=== PATIENT | female | born 1985 | race Caucasian/White ===

== ENCOUNTER 2021-08-08 18:11 | Emergency (ER) | payer MEDICAID, SELFPAY ==
[2021-08-08 19:16] VITALS: BP 131/88; PULSE 81; RESP 19; TEMP 37; O2SAT 98; BMI 34.2
--- NOTE | 2021-08-08 19:31 | HMH.EDUTC ---
[facility] [place] Disposition Clinical Impression: Otitis media Qualifiers: Otitis media type: unspecified Laterality: left Qualified Code(s): H66.92 - Otitis media, unspecified, left ear Disposition: Home, Self-Care Condition on Discharge: Good Instructions: Middle Ear Infection, Amoxicillin Additional Instructions: *Monitor Temp, Over the counter Motrin or Tylenol as directed/as needed Tylenol every 4 hours and Motrin every 6 hours (as long as your family doctor has told you that you can take it) for fever or pain. and straight to ER if unable to lower temp less than 101.0 after medication given *Warm salt water gargles may help to soothe the throat *Throat Lozenges *Warm fluids like tea with honey may help to soothe the throat *Sleep elevated *Humidifier/Vaporizer *Flonase 2 sprays in each nostril daily but be aware that it may take 2-3 days before you notice improvement Take antibiotics as prescribed Follow up IMMEDIATELY for new or worsening symptoms or no Noticeable improvement over the next 48-72 hours. 911 for difficulty breathing or swallowing Prescriptions: Amoxicillin [Amoxicillin 875MG Tab] 875 mg PO Q12H #20 tab Transmission Status: Pending to [facility] Brompheniramine/Pseudoephed/Dm [Bromfed Dm Cough Syrup] 5 - 10 ml PO Q46H PRN #150 ml PRN Reason: Cough Transmission Status: Pending to [facility] Fluticasone Propionate [Flonase 50mcg nasal spray 16gm] 1 spr NS DAILY #1 each Transmission Status: Pending to [facility] Referrals: Hunter Storey MD [Primary Care Provider] - As needed Time of Disposition: 19:37 Medical Decision Making - Kwabena Inquiry Pt receiving controlled substance: No Kwabena was queried for this patient: No Vital Signs: 08/08/21 19:16 Temperature 98.6 F Temperature Source Oral Pulse Rate [Left] 81 Respiratory Rate 19 Blood Pressure [Right Arm] 131/88 Blood Pressure Mean [Right Arm] 102 02 Sat by Pulse Oximetry 98 [facility] [place] HPI - General Stated complaint: bilateral ear ache Time Seen by Provider: 08/08/21 19:31 Mode of Arrival: Ambulatory Source of Information: Patient Limitations: No Limitations Description of Symptoms (Recalled from Triage Doc. by RN): pt c/o ear aches, sore throat and a cough x3 days. HEENT Symptoms (Recalled from RN notes): Yes Resp Symptoms (Recalled from RN notes): Yes Skin Symptoms (Recalled from RN notes): No MS Symptoms (Recalled from RN notes): No Functional Status (Recalled from RN notes): wnl - History of Present Illness Provider Complaint: Patient states that she has been having bilateral ear aches, cough and scratchy throat States that ears have been hurting for several days and feels like she has pressure in there States that this evening she was still having pain and cough so she came in to get checked out - Related Data Previous Rx's Medication Instructions Recorded Amoxicillin [Amoxicillin 875MG 875 mg PO Q12H #20 tab 08/08/21 Tab] Brompheniramine/Pseudoephed/Dm 5 - 10 ml PO Q46H PRN #150 ml 08/08/21 [Bromfed Dm Cough Syrup] Fluticasone Propionate [Flonase 1 spr NS DAILY #1 each 08/08/21 50mcg nasal spray 16gm] Allergies Allergy/AdvReac Type Severity Reaction Status Date / Time No Known Allergies Allergy Verified 07/22/21 14:27 - Worker's Comp Is this a Worker's Comp case?: No [facility] History - Hepatitis A Screen Drug use history?: No High risk sexual behaviors?: No History of sexually transmitted infection?: No Currently employed?: No Childcare worker?: No Do you have indoor plumbing?: Yes Do you have electricity?: Yes Attestation statement:: This patient has been screened for Hepatitis A risk factors. I have reviewed the patient's past medical history: Yes Other Surgeries: Yes: No Previous Surgery Amputation: No Fractures: No - Social History Smoking Status: Never smoker Alcohol Intake: never Substance Use Type: denies use Occupational Status: employed Fam
[2021-08-08 19:44] VITALS: BP 131/88; PULSE 81; RESP 19; TEMP 37
== END 2021-08-08 19:45 | disposition home or self-care (01) ==
PROVIDERS: Emergency Provider Nurse Practitioner; PCP Emergency Medicine
DX: H66.92 Otitis media, unspecified, left ear (principal)
CPT/HCPCS: 99202; G0463

== ENCOUNTER → 2021-12-09 16:36 | Outpatient (CLI) | payer MEDICAID, SELFPAY ==
--- NOTE | 2021-12-09 16:44 | XR_ITS ---
PROCEDURE INFORMATION: Exam: XR Left Foot Exam date and time: 12/09/2021 4:48 PM Age: 36 years old Clinical indication: Foot; Patient HX: Pain in left heel. Plantar fascitis vs heel spur is what her doctor told her. No known injury. ; Additional info: Left foot pain TECHNIQUE: Imaging protocol: XR Left foot. Views: 3 or more views. COMPARISON: No relevant prior studies available. FINDINGS: Bones/joints: Prominent enthesophyte from the plantar margin of the calcaneus at the site of the plantar aponeurosis. Persistent os trigonum. Soft tissues: Normal. IMPRESSION: 1. No evidence of acute osseous injury. 2. Prominent enthesophyte plantar margin of the calcaneus. 3. Recommendations: Follow-up with magnetic resonance imaging to evaluate for the presence of plantar fasciitis.
== END ==
PROVIDERS: PCP Emergency Medicine; Visit Provider Emergency Medicine
DX: M79.672 Pain in left foot (principal)
CPT/HCPCS: 73630

== ENCOUNTER 2022-11-06 17:56 | Emergency (ER) | payer MEDICAID, OTHER, SELFPAY ==
[2022-11-06 18:05] VITALS: BP 149/94; PULSE 105; RESP 18; TEMP 37.2; O2SAT 99; BMI 34.1
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
[2022-11-06 18:36] VITALS: BP 149/94; PULSE 105; RESP 18; TEMP 37.2
== END 2022-11-06 18:37 | disposition home or self-care (01) ==
PROVIDERS: Emergency Provider Nurse Practitioner Family; PCP Nurse Practitioner Family
DX: T24.291A Burn of second degree of multiple sites of right lower limb, except ankle and foot, initial encounter (principal); T25.222A Burn of second degree of left foot, initial encounter; X10.1XXA Contact with hot food, initial encounter
CPT/HCPCS: 99212; 99214; G0463

== ENCOUNTER → 2022-11-10 08:58 | Outpatient (CLI) | payer MEDICAID, SELFPAY ==
[2022-11-10 09:42] LABS: Basophils % 0.4 % (0.1-2.0); Eosinophils # 0.1 K/mm3 (0.0-0.4); Eosinophils % 1.2 % (0.1-12.0); Hematocrit 42.6 % (37.0-47.0); Hemoglobin 13.8 g/dL (12.2-16.2); Lymphocytes # 1.9 K/mm3 (0.7-4.5); Lymphocytes % 22.1 % (10-50); Mean Corpuscular HGB Conc 32.5 g/dL (31.8-35.4); Mean Corpuscular Hemoglobin 28.7 pg (27.0-31.2); Mean Corpuscular Volume 88.4 fl (81-99); Mean Platelet Volume 7.8 fl (7.4-10.4); Monocytes # 0.5 K/mm3 (0.1-1.0); Monocytes % 5.9 % (1.7-9.3); Neutrophils % 70.4 % (37.0-80.0); Platelet Count 297 K/mm3 (142-424); Red Blood Count 4.82 M/mm3 (4.20-5.40); Red Cell Distribution Width 13.1 % (11.5-17.5); White Blood Count 8.5 K/mm3 (4.8-10.8)
[2022-11-10 10:18] LABS: Alanine Aminotransferase 17 U/L (12-78); Albumin Level 4.1 g/dl (3.5-5.0); Albumin/Globulin Ratio 1.5 (1.1-1.8); Alkaline Phosphatase 51 U/L (38-126); Anion Gap 16.5 mEq/L (5-15); Aspartate Amino Transferase 23 U/L (14-36); Bilirubin,Total 0.4 mg/dl (0.2-1.3); Blood Urea Nitrogen 11 mg/dl (7-17); Calcium 8.8 mg/dl (8.4-10.2); Carbon Dioxide 27 mmol/L (22.0-30.0); Chloride 100 mmol/L (98-107); Chol/HDL Ratio 2.4 (1-3.5); Cholesterol 161 mg/dl (140-200); Estimated Glomerular Filt Rate 112 ml/min (>60); GFR (African American) 135 ML/MIN (>60); Globulin 2.8 g/dL (1.3-3.2); Glucose 89 mg/dl (74-100); HDL Cholesterol 68 mg/dl (40-60); Potassium 4.5 mmoL/L (3.5-5.1); Sodium 139 mmol/L (136-145); Total Protein,Serum 6.9 g/dl (6.3-8.2); Triglycerides 63 mg/dl (30-150); VLDL Cholesterol 13 mg/dL (0-40)
[2022-11-10 10:39] LABS: Free Thyroxine Index 2.8 ug/dL (5.93-13.13); T4 (Thyroxine) 9.1 ug/dl (5.53-11.0); Triiodothryronine (T3) Uptake 31 % (23.5-40.5)
[2022-11-10 10:53] LABS: Thyroid Stimulating Hormone 0.46 uIU/mL (0.465-4.68)
== END ==
PROVIDERS: PCP Emergency Medicine; Visit Provider Nurse Practitioner Family
DX: R53.83 Other fatigue (principal); E55.9 Vitamin D deficiency, unspecified; Z79.899 Other long term (current) drug therapy
CPT/HCPCS: 36415; 80053; 80061; 82306; 84436; 84443; 84479; 85025

== ENCOUNTER 2023-05-21 11:45 | Emergency (ER) | payer MEDICAID, SELFPAY ==
[2023-05-21 11:46] VITALS: BP 168/90; PULSE 92; RESP 18; TEMP 36.9; O2SAT 99; BMI 33.2
--- NOTE | 2023-05-21 12:10 | XR_ITS ---
PROCEDURE INFORMATION: Exam: XR Soft Tissue Neck Exam date and time: 05/21/2023 12:33 PM Age: 37 years old Clinical indication: Other: Patient says tongue feels swollen; Additional info: Recent uri, now with diff swallowing TECHNIQUE: Imaging protocol: Radiologic exam of the soft tissues of the neck. Total images: 2 COMPARISON: No relevant prior studies available. FINDINGS: Airway: Normal. No abnormal narrowing. Soft tissues: Normal. Normal epiglottis. Bones/joints: Unremarkable. IMPRESSION: No acute findings.
--- NOTE | 2023-05-21 12:31 | HMH.EDGENADL ---
Discharge Plan Disposition Patient Disposition: Home, Self-Care Condition: Good Prescriptions Prescriptions: No Action Kyleena 17.5 mcg/24 hrs (5 yrs) 19.5 mg intrauterine device 1 device intrauterine ONCE cholecalciferol (vitamin D3) [Vitamin D3] 25 mcg (1,000 unit) capsule See Rx Instructions .ROUTE .COMPLEX Qty: 30 0RF Dose Instruction: Take 1 capsule by mouth once daily Rx Instructions: Take 1 capsule by mouth once daily Referrals Follow up/Referrals: Hunter Storey MD [Primary Care Provider] - See instructions Activity Restrictions/Add. Instructions Additional Instructions/Restrictions: You were evaluated in the emergency department today. Please take Tylenol and ibuprofen at home as needed for pain and fever. Hydrate is much as possible. Return to the emergency department for new or worsening symptoms. Clinical Impressions Clinical Impression: Laryngitis, Viral URI with cough Instructions Patient Instructions: DI for Viral Upper Respiratory Infection -- Adult, DI for Laryngitis Discharge ED Provider: Ayana Verma General Adult HPI General Chief complaint: Upper Respiratory Infection Stated complaint: sore throat, cough, congestion, h/a Time Seen by Provider: 05/21/23 12:01 Mode of Arrival: Ambulatory Source of Information: Patient Limitations: No Limitations Description of Symptoms (Recalled from ER Triage Doc. by RN): PT REPORTS CONGESTION, DRY COUGH SINCE LAST THURSDAY, FELT BETTER YESTERDAY. WOKE THIS AM, REPORTS 99.0 TEMPERATURE AND FEELING WORSE History of Present Illness HPI narrative: This patient is a 37-year-old female who denies significant past medical history presented to the emergency department for evaluation with concern for sore throat and hoarse voice. She states that she has had cough, congestion, and upper respiratory symptoms since last Thursday, however yesterday she was feeling better. This morning, she woke up feeling much worse with a temperature of 99 ?F, hoarse voice, and pain with swallowing. She is still able to swallow, she has no trismus, drooling, or other concerns. She also has no chest pain, shortness of breath, abdominal pain, nausea, vomiting, changes bowel movements, or other concerns she has otherwise been well. Related Data Home Medications Medication Instructions Recorded Confirmed levonorgestrel 17.5 mcg/24 hrs 1 device intrauterine ONCE 03/30/23 03/30/23 (5yrs) 19.5mg intrauterine device (Kyleena) Previous Rx's Medication Instructions Recorded cholecalciferol (vitamin D3) 25 See Rx Instructions .Route 01/26/23 mcg (1,000 unit) capsule (Vitamin .COMPLEX #30 caps D3) Allergies Allergy/AdvReac Type Severity Reaction Status Date / Time No Known Allergies Allergy Verified 03/30/23 15:34 [facility] Disclaimer: The information contained in this section may have been updated after the patient was seen, as this information can be updated by other users. Medical History Menorrhagia Surgical History No significant past surgical history Family History Other No significant family history Social History Smoking Status: Never smoker alcohol intake: never substance use type: denies use current occupational status: employed Travel in the last 8 weeks: None ROS Obtained: Yes All systems reviewed & no additional complaints except as documented Physical Exam General General appearance: alert and in no apparent distress Head Head exam: atraumatic and normocephalic Eye Eye exam: Present normal appearance, PERRL and EOMI ENT ENT exam: Present mucous membranes moist and normal external ear exam; Absent normal oropharynx (Mild pharyngeal erythema. No appreciable exudates. No uvular deviatio
[2023-05-21 12:59] LABS: Strep Scrn Group A (Rapid) Negative (Negative)
[2023-05-21 13:03] LABS: Coronavirus 19, PCR Not Detected (NotDetected); Influenza A, PCR Not Detected (NotDetected); Influenza B, PCR Not Detected (NotDetected)
[2023-05-21 13:35] VITALS: BP 143/85; PULSE 78; RESP 18; TEMP 37.2; O2SAT 100
== END 2023-05-21 13:35 | disposition home or self-care (01) ==
PROVIDERS: Emergency Provider Emergency Medicine; PCP Emergency Medicine
DX: J04.0 Acute laryngitis (principal); J06.9 Acute upper respiratory infection, unspecified; R05.9 Cough, unspecified
CPT/HCPCS: 70360; 87430; 87636; 99283; 99284

== ENCOUNTER 2023-09-21 11:40 | Outpatient (CLI) | payer MEDICAID, SELFPAY ==
[2023-09-21 13:02] LABS: T4 (Thyroxine) 8.9 ug/dl (5.53-11.0); Triiodothryronine (T3) Uptake 34 % (23.5-40.5)
[2023-09-21 13:16] LABS: Thyroid Stimulating Hormone 0.37 uIU/mL (0.465-4.68)
== END 2023-09-21 23:59 ==
LOC: LAB 11:41
PROVIDERS: PCP Internal Medicine; Visit Provider Obstetrics & Gynecology
DX: N93.9 Abnormal uterine and vaginal bleeding, unspecified (principal); R23.2 Flushing; R45.86 Emotional lability; G47.9 Sleep disorder, unspecified
CPT/HCPCS: 36415; 84436; 84443; 84479

== ENCOUNTER 2024-06-08 17:26 | Emergency (ER) | payer BC, SELFPAY ==
[2024-06-08 18:00] VITALS: BP 150/89; PULSE 74; RESP 18; TEMP 36.7; O2SAT 97; BMI 34.0
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
[2024-06-08 18:16] LABS: UTC Strep Screen (Rapid) Negative (Negative)
[2024-06-08 18:20] VITALS: BP 150/89; PULSE 74; RESP 18; TEMP 36.7; O2SAT 97
== END 2024-06-08 18:24 | disposition home or self-care (01) ==
PROVIDERS: Emergency Provider Nurse Practitioner; PCP Internal Medicine
DX: R09.89 Other specified symptoms and signs involving the circulatory and respiratory systems (principal); R05.9 Cough, unspecified; J02.9 Acute pharyngitis, unspecified; R49.0 Dysphonia
CPT/HCPCS: 87880; 99212; G0381